=== PATIENT | female | born 1975 | race Caucasian/White ===

== ENCOUNTER 2020-12-30 18:29 | Emergency (ER) | payer OTHER ==
[~2020-12-30] VITALS: Ht 154 cm; Wt 49.0 kg
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
--- NOTE | 2020-12-30 19:06 | Diagnostic Imaging Report ---
INDICATION: Fall, right scapula pain, shoulder pain. COMPARISON: None. EXAMINATION: Two views of the right scapula were obtained. FINDINGS: Chronically healed scapular fracture. There is no acute fracture or dislocation. The AC and glenohumeral joints are intact. There is no osseous lesion. IMPRESSION: No acute fracture or dislocation. Dictated by: Dictated on workstation # [id number]
[2020-12-30 20:11] VITALS: BP 122/89
== END 2020-12-30 20:12 | disposition home or self-care (01) ==
LOC: ER FS 18:31
DX: S40.011A Contusion of right shoulder, initial encounter (principal); F17.210 Nicotine dependence, cigarettes, uncomplicated; W18.30XA Fall on same level, unspecified, initial encounter
CPT/HCPCS: 73010; 99283; A4565